=== PATIENT | female | born 2005 | race Caucasian/White ===

== ENCOUNTER 2025-01-06 10:09 | Inpatient (IN) ==
--- NOTE | 2025-01-06 10:55 | Emergency Department Note ---
Impression & Plan Bacteremia due to Gram-negative bacteria, Acute endometritis ED Provider Note NAME: MARZENA BEEBE AGE: 19 SEX: F : 2005 ARRIVES VIA: Walk-In INFORMANT: Patient, ED PROVIDER(S): Omar Manning DO CHIEF COMPLAINT: Fever HPI: The patient is a 19-year-old female who presented to the emergency department for an evaluation of fever. The patient was seen in our facility yesterday. She is 6 days. The patient denies having any chest pain or difficulty breathing. She denies having any cough. She does complain of some lower pelvic pain. She was noted to have a gram-negative bacteremia and was called to come back to our emergency department. ROS: See above HPI for pertinent positives & negatives. A total of 10 systems reviewed and were otherwise negative. PAST MEDICAL HISTORY: See Below PAST SURGICAL HISTORY: See Below FAMILY HISTORY: See Below SOCIAL HISTORY: See Below HOME MEDICATIONS: See Below ALLERGIES: See Below VITALS: See Below PHYSICAL EXAMINATION: GENERAL: Patient is awake alert in no acute distress patient is resting comfortably and showing no signs of anxiety EYES: The conjunctivae are clear. The pupils are round and reactive. EARS, NOSE, MOUTH AND THROAT: The nose is without any evidence of any deformity. NECK: The neck is nontender and supple. RESPIRATORY: Normal respiratory effort is noted there is no evidence of wheezing rhonchi or rales CARDIOVASCULAR: Tachycardic and regular heart sounds were noted to auscultation. There is no definite murmur. GASTROINTESTINAL: There was no specific guarding or rigidity noted. MUSCULOSKELETAL/EXTREMITIES: There is no evidence of gross deformity full range of motion is noted in the hips and shoulders. SKIN: There is no obvious evidence of any rash. There are no petechiae, pallor or cyanosis noted. NEUROLOGIC: Patient is awake alert and oriented x3 MEDICAL DECISION MAKING: The patient is a 19-year-old female who is who presented to the emergency department for a positive blood culture. The patient was noted to have signs of urine infection and was started on antibiotics. This was yesterday. Patient returns today because her blood cultures were growing gram- negative bacilli which [employer] identified as E. coli. The patient was tachycardic. She was not hypotensive. The patient was treated with IV fluids and IV antibiotics in emergency department. I discussed the patient's condition with the on-call [facility] FLIGHT COMMUNICATIONS OFFICER physician as well as the on-call [facility] hospitalist. The patient was evaluated in emergency department for further management and disposition. Triage Nursing notes reviewed. Prior medical records reviewed Vital Signs: reviewed and remarkable for tachycardia. Differential diagnosis: Viral syndrome, otitis, pharyngitis, pneumonia, influenza, meningitis, urinary tract infection, sepsis, bacteremia, as well as other pathologies. ER treatment provided: See below Diagnostics interpreted by me: ECG: EKG was obtained in the emergency department. My interpretation is sinus tachycardia at 115 bpm. There is no ectopy. There is no acute ST segment abnormalities noted. QTc was 417 ms. Cardiac Monitoring: An order was placed for continuous cardiac monitoring. The monitor shows a rate of 119 bpm with sinus tachycardia. Laboratory studies: As stated above and show below. Imaging studies: See below. Radiographic imaging was reviewed by myself Consultation(s): Dr. King was notified about the patient. He will evaluate the patient in the emergency department for further management and disposition. I discussed this case with Dr. Magdaleno who is on-call for [facility] FLIGHT COMMUNICATIONS OFFICER. ED COURSE: Procedures: none Critical Care: I have personally spent greater than 45 minutes of critical care time in the direct management of this patient. This includes bedside care, interpretation of diagnostic studies, and testing, discussion with consultants, patient, and family members, and other required patient management activities. This 45 minutes is in excess of all separately billable procedures. Past Med/Surg History Problem List (Updated 01/06/25 @ 11:22 by Omar Manning DO) Acute endometritis (Acute) Bacteremia due to Gram-negative bacteria (Acute) UTI (urinary tract infection) (Acute) Febrile illness, acute (Acute) care following vaginal delivery Encounter for pre-operative examination Normal labor Supervision of normal first Early stage of Encounter for anatomic survey Medical History Varicella vaccination Anxiety ADD (attention deficit disorder) Acne Surgical History No history of previous surgery Family History Denies family history of Ovarian cancer Breast cancer Colorectal cancer Social History Smoking Status: Never smoker Second Hand Exposure: Yes; Do You Dip or Chew Tobacco: No; Hx Alcohol Use: No Hx Substance Use: No Preferred Language: Yi Communication Ability: Effective Visual Impairment: No Limitations Hearing Ability: Normal Carpet Cleaner Required: No Beliefs That Will Affect Care: None marital status: Single marital status details: Mayi Puente (19) [phone] Current Living Situation: Family Current Living Situation Comment: lives alone, 2 dogs current occupational status: unemployed current occupation: [employer]-recently offered job at a [employer] Other Information That Helps Us Care for You: No Feels Safe at Home: Yes Safety Concerns: Feels Safe At This Time Dental Care, Regularly: Yes Seatbelt Use: always Assistive Devices: None Allergies Allergies Allergy/AdvReac Type Severity Reaction Status Date / Time No Known Allergies Allergy Verified 01/06/25 11:17 Home Meds Home Medications Medication Instructions Recorded Confirmed No Known Home Medications 01/06/25 01/06/25 Results & Data (ED) Vital Signs Vital Signs - 24 hr 01/06/25 10:32 01/06/25 11:17 01/06/25 11:19 Temperature 36.8 C Temperature Source Oral Pulse Rate 126 H 115 H Pulse Rate [Apical] 110 H Pulse Rate from SpO2 Sensor Pulse Rhythm Regular Pulse Rhythm [Apical] Regular Respiratory Rate 20 22 16 Respiratory Effort / Characteristics Non-Labored Spontaneous Non-Labored Spontaneous Respiratory Depth Normal Normal Blood Pressure 116/68 Blood Pressure [Left Arm] 118/70 Blood Pressure Mean 84 Blood Pressure Mean [Left Arm] 86 Pulse Oximetry 100 100 100 Oxygen Delivery Method Room Air Room Air Room Air Sepsis Recent Fever Within 48 Hours No Sepsis New/Unexplained Change in Mental Status N/A Sepsis Action Taken by Nursing No Action Required 01/06/25 11:30 01/06/25 12:29 Temperature 37.5 C Temperature Source Oral Pulse Rate 128 H Pulse Rate [Apical] 123 H Pulse Rate from SpO2 Sensor 128 H Pulse Rhythm Pulse Rhythm [Apical] Respiratory Rate 21 28 H Respiratory Effort / Characteristics Non-Labored Respiratory Depth Normal Blood Pressure 99/53 L Blood Pressure [Left Arm] 115/79 Blood Pressure Mean 64 Blood Pressure Mean [Left Arm] 91 Pulse Oximetry 100 98 Oxygen Delivery Method Room Air Sepsis Recent Fever Within 48 Hours Sepsis New/Unexplained Change in Mental Status Sepsis Action Taken by Residential Medications Current Medication List: was personally reviewed by me Laboratory Data Attestation: I reviewed the patient's lab results. 01/06/25 11:02 01/06/25 11:02 Lab Results 01/06/25 Range/Units 11:02 WBC 11.11 H (4.8-10.8) K/ul RBC 3.12 L (4.20-5.40) M/uL Hgb 8.7 L (12.0-16.0) g/dl Hct 28.3 L (37.0-47.0) % MCV 90.7 (80.0-100.0) fL MCH 27.9 (25.0-34.0) pg MCHC 30.7 L (32.0-36.0) g/dL RDW Std Deviation 44.9 (36.4-46.3) fL RDW Coeff of Neyda 13.8 (11.5-14.5) % Plt Count 165 (130-400) K/uL MPV 10.5 (9.4-12.4) fL Immature Gran % (Auto) 0.8 % Neut % (Auto) 88.4 % Lymph % (Auto) 8.6 % [place] % (Auto) 1.6 % Eos % (Auto) 0.3 % Baso % (Auto) 0.3 % Neut # (Auto) 9.83 H (1.40-6.50) K/uL Lymph # (Auto) 0.95 L (1.20-3.40) K/uL [place] # (Auto) 0.18 (0.11-0.59) K/uL Eos # (Auto) 0.03 (0.00-0.50) K/uL Baso # (Auto) 0.03 (0.00-0.20) K/uL Immature Gran # (Auto) 0.09 (0.01-0.20) K/uL Toxic Vacuolation 1+ Dohle Bodies 1+ Polychromasia 1+ Sodium 140 (136-145) mmol/L Potassium 4.0 D (3.5-5.1) mmol/L Chloride 110 H (98-107) mmol/L Carbon Dioxide 22 (21-32) mmol/L Anion Gap 8 (3-11) BUN 13 (6-23) mg/dl Creatinine 0.64 (0.6-1.2) mg/dl Est Cr Clr Drug Dosing 106.7 ml/min eGFR 130.48 BUN/Creatinine Ratio 20.3 H (10-20) Glucose 90 (70-99(Fasting)) mg/dl Lactate 1.4 (0.4-2.0) mmol/L Calcium 8.6 (8.6-10.3) mg/dl Magnesium 2.0 (1.7-2.4) mg/dl Total Bilirubin 0.7 (0.2-1.0) mg/dl Direct Bilirubin 0.1 (0-0.2) mg/dl AST 19 (13-39) U/L ALT 17 (7-52) U/L Alkaline Phosphatase 133 H (34-104) U/L Troponin I High Sens 15.6 H (0-14) pg/ml Total Protein 6.5 (6.0-8.3) gm/dl Albumin 3.5 (3.4-5.0) gm/dl Procalcitonin 41.60 H (0-0.5) ng/ml Administered Medications Discontinued Medications Piperacillin Sod/Tazobactam Sod (Zosyn) 4.5 gm in 100 mls @ 200 mls/hr IV NOW ONE; Protocol Stop: 01/06/25 11:01 Last Infusion: 01/06/25 12:59 Dose: Infused Documented By: Admin: 01/06/25 11:33 Dose: 200 mls/hr Documented By: BLANCA Sodium Chloride (Nss) 1,000 mls @ 999 mls/hr IV .Q1H1M ONE Stop: 01/06/25 11:55 Last Infusion: 01/06/25 12:59 Dose: Infused Documented By: Admin: 01/06/25 11:10 Dose: 999 mls/hr Documented By: BLANCA Sodium Chloride (Nss) 500 mls @ 999 mls/hr IV .Q31M ONE Stop: 01/06/25 11:25 Last Infusion: 01/06/25 11:38 Dose: Infused Documented By: Admin: 01/06/25 11:10 Dose: 999 mls/hr Documented By: BLANCA Acetaminophen (Ofirmev) 1,000 mg in 100 mls @ 400 mls/hr IV NOW STA Stop: 01/06/25 12:02 Last Infusion: 01/06/25 12:29 Dose: Infused Documented By: Admin: 01/06/25 11:53 Dose: 400 mls/hr Documented By: BLANCA Discharge Plan Visit Data Chief Complaint: Referred by Doctor Stated Complaint: DOC REF ED Provider: Omar Manning Discharge Problem: Bacteremia due to Gram-negative bacteria, Acute endometritis Patient Disposition: Admitted As Inpatient Condition: Fair Discharge Instructions Interventions: ED Discharge Assessment Last Done: 01/06/25 15:18
[2025-01-06] MEDS: SODIUM CHLORIDE 0.9% 500 ML IV ONE (11:10)
[2025-01-06] MEDS: SODIUM CHLORIDE 0.9% 1,000 ML IV ONE (11:10)
[2025-01-06 11:30] LABS: Hematocrit (blood only) 28.3 % (37.0-47.0); Hemoglobin 8.7 g/dl (12.0-16.0); Mean Corpuscular Hemoglobin 27.9 pg (25.0-34.0); Mean Corpuscular Volume 90.7 fL (80.0-100.0); Platelet Count 165 K/uL (130-400); RDW Standard Deviation 44.9 fL (36.4-46.3); Red Blood Count 3.12 M/uL (4.20-5.40); White Blood Count 11.11 K/ul (4.8-10.8)
[2025-01-06] MEDS: PIPERACILLIN/TAZOBACTAM 4.5 GM/100 ML BAG IV ONE (11:33)
[2025-01-06 11:51] LABS: Alanine Aminotransferase 17.0 U/L (7-52); Alkaline Phosphatase 133.0 U/L (34-104); Anion Gap 8.0 (3-11); Bilirubin,Total 0.7 mg/dl (0.2-1.0); Blood Urea Nitrogen 13.0 mg/dl (6-23); Calcium 8.6 mg/dl (8.6-10.3); Carbon Dioxide 22.0 mmol/L (21-32); Chloride 110.0 mmol/L (98-107); Creatinine Clr Calc Pharmacy 106.7 ml/min; Glucose 90.0 mg/dl (70-99(Fasting)); Magnesium 2.0 mg/dl (1.7-2.4); Potassium 4.0 mmol/L (3.5-5.1); Sodium 140.0 mmol/L (136-145); Total Protein 6.5 gm/dl (6.0-8.3)
[2025-01-06] MEDS: ACETAMINOPHEN 1,000 MG/100 ML VIAL IV STA (11:53)
[2025-01-06 12:00] LABS: Immature Granulocytes # (auto) 0.09 K/uL (0.01-0.20); Immature Granulocytes % (auto) 0.8 %; Polychromasia 1+
[2025-01-06 12:02] LABS: Dohle Bodies 1+; Toxic Vacuolation 1+
--- NOTE | 2025-01-06 13:05 | OB/GYN Consultation ---
Date of Consultation January 06, 2025 Assessment & Plan (1) Bacteremia due to Gram-negative bacteria: PHYSICAL EXAM Gastrointestinal: Abdomen is non-tender on palpation. RESULTS Labs - Blood Culture: Bacteria found ASSESSMENT AND PLAN 1. Fever, chills, and shaking: - Symptoms include fever, shakes, chills, dizziness, and headache. - Physical exam findings include no tenderness in the lower belly, no unusual vaginal discharge, and no bladder infection symptoms. - A consultation with the medical team will be arranged to further investigate the cause of her symptoms. The possibility of a uterine infection is considered due to recent childbirth on 12/31/2024, but other causes are also being evalua tracey. - Intravenous antibiotics will be administered as part of her treatment plan. Note on palpation her uterus is truly nontender she has minimal to no bleeding no foul discharge she feels as though her surgical repair is intact and has no significant issues down there on endometritis is certainly on the list of possibilities her gram-positive bacteremia may have other causes we will follow along with the medical team Of note our literature supports clindamycin 900 mg IV every 8 along with gentamicin 5 mg/kg daily for the treatment of pure endometritis patient is rec eiving Zosyn would defer to medical team if they feel continuing Zosyn is the better choice or clindamycin and gentamicin again low suspicion on endometritis as I reviewed her imaging as well and typically with endometritis there would be more content within the endometrium her lining is only 6 mm and the symptoms do not necessarily fit with this very strongly Consider causes like pyelo as well History of Present Illness History of Present Illness Visit MATT Calculator Estimated Delivery Date Method Current WG Current Estimate 01/07/25 LMP (Certain) 37w 1d Other Estimates 01/06/25 Ultrasound #1 37w 2d LMP: 04/02/24 : 1 Full term: 0 Premature: 0 Total Number of Induced Abortions: 0 Total Number of Spontaneous Abortions: 0 Ectopics: 0 Multiple births: 0 Number of Living Children: 0 and Delivery Plans hepatitis non immune HISTORY OF PRESENT ILLNESS The patient presents for evaluation of fever, chills, and shaking. She reports experiencing fever, chills, shaking, mild dizziness, and headaches. These symptoms began on Monday night, prompting her to seek medical attention on Monday. However, the cause of her symptoms was not determined at that time. She reports no pain in the uterine area or increased bleeding. She also reports no symptoms suggestive of a bladder infection or any unusual vaginal discharge. She recently gave on 12/31/2024, with a third-degree tear, but currently feels well in that area. Tylenol has been effective in managing her symptoms. Obstetrical History discussed: Gave on 12/31/2024 Third-degree tear REVIEW OF SYSTEMS Negative for pain in the uterine area, increased bleeding, symptoms suggestive of a bladder infection, or any unusual vaginal discharge. Allergies Allergy/AdvReac Type Severity Reaction Status Date / Time No Known Allergies Allergy Verified 01/06/25 11:17 Home Medications Medication Instructions Recorded Confirmed Type No Known Home Medications 01/06/25 01/06/25 History Patient History Medical History Varicella vaccination Anxiety ADD (attention deficit disorder) Acne Surgical History No history of previous surgery Family History Denies family history of Ovarian cancer Breast cancer Colorectal cancer Social History Smoking Status: Never smoker Second Hand Exposure: Yes; Do You Dip or Chew Tobacco: No; Hx Alcohol Use: No Hx Substance Use: No Preferred Language: Guinean Communication Ability: Effective Visual Impairment: No Limitations Hearing Ability: Normal Baling Machine Tender Required: No Beliefs That Will Affect Care: None marital status: Single marital status details: Mayi Puente (19) [phone] Current Living Situation: Family Current Living Situation Comment: lives alone, 2 dogs current occupational status: unemployed 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 Other Information That Helps Us Care for You: No Feels Safe at Home: Yes Safety Concerns: Feels Safe At This Time Dental Care, Regularly: Yes Seatbelt Use: always Assistive Devices: None Physical Exam Constitutional: WD/WN, vitals as above well developed and well nourished Respiratory: normal respiratory effort, lungs clear to auscultation normal respiratory effort Cardiovascular: RRR, no murmur, no edema Gastrointestinal (Abdomen): normal bowel sounds, soft, nontender, no hepatosplenomegaly Results & Data Vital Signs (Past 12 Hours) Vital Signs Temp Pulse Pulse Resp BP BP Pulse Ox 01/06/25 12:29 128 H 28 H 99/53 L 98 01/06/25 11:30 99.5 F 123 H 21 115/79 100 01/06/25 11:19 115 H 16 100 01/06/25 11:17 110 H 22 118/70 100 01/06/25 10:32 98.2 F 126 H 20 116/68 100 O2 Del Method 01/06/25 12:29 01/06/25 11:30 Room Air 01/06/25 11:19 Room Air 01/06/25 11:17 Room Air 01/06/25 10:32 Room Air PG Care Time/CCT Total # of Minutes Spent Total Time Spent with Patient: Total time spent is greater than 50% in coordination of care (as documented) at patient's floor/unit and/or counseling patient: Coding Level of Care Code 02829 IN/OBS CONSULT LVL 3,45M Diagnoses Bacteremia due to Gram-negative bacteria R78.81
--- NOTE | 2025-01-06 13:14 | History & Physical Report ---
Date of Service January 06, 2025 Assessment & Plan (1) UTI (urinary tract infection): Plan: Pyelonephritis/Sepsis in a 19 yo female with CVA tenderness on the left Patient will be admitted to PCU due to tachycardia from 120-150 Patient though appears to be slowly improving. Will obtain U/Q of kidneys. WIll consult locomotive observer emily continue current antibiotics Zosyn. Require 2.5 liters IVF bolus Plan Left pyelonephritis Left cva tenderness will continue zosyn History of Present Illness Chief Complaint: Gemeralized malaise Primary Care Provider: Ramona Galindo MD Patient is a 19 yo and 6 days . Patient had a spontaneous delvery with no complications. She did require an episiotomy.Patient reports minimal drainage and bleeding. For the past 24-48 hours, patient had been complaining of generalized malaise, fever chills. Patient however denies any SOB, nausea vomting, diarrhea, abdominal pain. She reports she is breast feeding. No breast pain. She came to the ED yesterday and was discharged on oral antibiotics however she did not pick them up. She was called back in due to her gram negative bacteremia that showed up on her blood culture. Allergies Allergy/AdvReac Type Severity Reaction Status Date / Time No Known Allergies Allergy Verified 01/06/25 11:17 Home Medications Medication Instructions Recorded Confirmed Type No Known Home Medications 01/06/25 01/06/25 History Past Med/Surg History Problem List (Updated 01/07/25 @ 08:20 by Martina Davis MD) Sepsis Pyelonephritis Acute endometritis (Acute) Bacteremia due to Gram-negative bacteria (Acute) UTI (urinary tract infection) (Acute) Febrile illness, acute (Acute) care following vaginal delivery Encounter for pre-operative examination Normal labor Supervision of normal first Early stage of Encounter for anatomic survey Medical History Varicella vaccination Anxiety ADD (attention deficit disorder) Acne Surgical History No history of previous surgery Family History Denies family history of Ovarian cancer Breast cancer Colorectal cancer Social History Smoking Status: Never smoker Second Hand Exposure: Yes; Do You Dip or Chew Tobacco: No; Hx Alcohol Use: No Hx Substance Use: No Preferred Language: Korean Communication Ability: Effective Visual Impairment: No Limitations Hearing Ability: Normal College Professor Required: No Beliefs That Will Affect Care: None marital status: Single marital status details: Mayi Puente (19) [phone] Current Living Situation: Family Current Living Situation Comment: lives alone, 2 dogs current occupational status: unemployed current occupation: [employer]-recently offered job at a [employer] Other Information That Helps Us Care for You: No Feels Safe at Home: Yes Safety Concerns: Feels Safe At This Time Dental Care, Regularly: Yes Seatbelt Use: always Assistive Devices: None Review of Systems Constitutional: + fever and + body aches Eyes: no blind spots Ear, Nose, Mouth, Throat: no ear pain Respiratory: no cough and no dyspnea Cardiovascular: no chest pain Gastrointestinal: no abdominal pain and no bloating Genitourinary: no dysuria and no urinary hesitancy Musculoskeletal: no back pain Integumentary: no acne Neurologic: no gait abnormality and no localized weakness Psychiatric: no behavioral changes Endocrine: no polydipsia Hematologic / Lymphatic: no easy bleeding Allergy / Immunological: no GI upset with certain foods and no seasonal rhinorrhea Physical Exam Constitutional: WD/WN, vitals as above Eyes: PERRL, conjunctivae normal, anicteric sclerae ENMT: external ear and nose normal, oropharynx normal Neck: trachea midline, no thyromegaly Respiratory: normal respiratory effort, lungs clear to auscultation Cardiovascular: RRR, no murmur, no edema Gastrointestinal (Abdomen): normal bowel sounds, soft, nontender, no hepatosplenomegaly Musculoskeletal: no cyanosis or clubbing, extremities motor strength 5/5 Skin: no rashes, warm and dry Neurologic: PERRL, EOMI, accommodation nl, no face palsy, no dysarthria Psychiatric: A+Ox3, euthymic affect Genitourinary: Left CVA tenderness Lymphatic: no cervical or axillary lymphadenopathy Results & Data Results & Data Vital Signs (Past 12 Hours) Vital Signs Temp Pulse Pulse Resp BP BP Pulse Ox 01/06/25 12:29 128 H 28 H 99/53 L 98 01/06/25 11:30 37.5 C 123 H 21 115/79 100 01/06/25 11:19 115 H 16 100 01/06/25 11:17 110 H 22 118/70 100 01/06/25 10:32 36.8 C 126 H 20 116/68 100 O2 Del Method 01/06/25 12:29 01/06/25 11:30 Room Air 01/06/25 11:19 Room Air 01/06/25 11:17 Room Air 01/06/25 10:32 Room Air PG Care Time/CCT Total # of Minutes Spent Total Time Spent with Patient: Total time spent is greater than 50% in coordination of care (as documented) at patient's floor/unit and/or counseling patient: Coding Level of Care Code 71658 INT INP/OBS CARE MIN Diagnoses UTI (urinary tract infection) N39.0
[2025-01-06 14:29] LABS: Appearance Urine Clear (Clear); Glucose Urine UA Negative (Negative)
[2025-01-06 14:58] LABS: Bacteria Urine Automated 1+ (None Seen); Cast Urine Automated 0-2 /lpf (0-2); WBC Urine Automated >50 /hpf (0-5)
--- NOTE | 2025-01-06 15:10 | Electrocardiogram Report ---
Test Reason : Blood Pressure : */* mmHG Vent. Rate : 115 BPM Atrial Rate : 115 BPM P-R Int : 112 ms QRS Dur : 54 ms QT Int : 302 ms P-R-T Axes : 43 48 48 degrees QTcB Int : 417 ms Sinus tachycardia Low voltage QRS Borderline ECG When compared with ECG of 05-Jan-2025 19:25, No significant change was found Confirmed by Omar Beal ([id number]) on 01/06/2025 3:09:57 PM Referred By: REFERRED SELF Confirmed By: Omar Beal
[2025-01-06 15:11] LABS: Amphetamines+Metham, Urine Neg (Neg); MDMA (Ecstacy), Urine Neg (Neg); Marijuana, Urine Neg (Neg)
[2025-01-06] MEDS: PIPERACILLIN/TAZOBACTAM 4.5 GM/100 ML BAG IV SCH (17:29)
[2025-01-06] MEDS: ACETAMINOPHEN 325 MG TAB PO PRN (18:20)
--- NOTE | 2025-01-06 18:46 | Ultrasound Report ---
Clinical history: Sepsis Technique: Renal sonography was performed Findings: The kidneys are of normal size and echogenicity. The right kidney measures 10.3 cm in length and the left kidney measures 11.6 cm in length. There is mild left hydronephrosis. No definite renal calculus or mass is seen. The urinary bladder contains apparent debris. Ureteral jets were not visualized. The spleen is mild enlarged measuring 13.7 cm Impression: 1. Mild left hydronephrosis. CT of the abdomen and pelvis could be considered for further evaluation 2. Debris within the bladder that could be due to infectious cystitis or hemorrhage 3. Mild splenomegaly ACT 112: Positive. There are findings on this exam that require communication between the performing entity and the patient following Patient Test Result Information Act ([place] ACT 112) guidelines. Electronically signed by Karlo Martinez 01-06-2025 6:44 PM
[2025-01-06] MEDS: DOCUSATE SODIUM 100 MG CAP PO SCH (20:09)
[2025-01-06 23:27] LABS: A calco-baum cmplx NotReported Not Detected (NotDetected); CTX-M Resistant Gene Not Detected (NotDetected); Efaecalis Not Reported Not Detected (NotDetected); Efaecium Not Reported Not Detected (NotDetected); IMP Resistant Gene Not Detected (NotDetected); KPC Resistant Gene Not Detected (NotDetected); Lmonocyt Not Reported Not Detected (NotDetected); NDM Resistant Gene Not Detected (NotDetected); OXA 48 Like Resistant Gene Not Detected (NotDetected); Staph lugdunensis Not Reported Not Detected (NotDetected); Staph spp. Not Reported Not Detected (NotDetected); Staphaureus Not Reported Not Detected (NotDetected); Staphepi Not Reported Not Detected (NotDetected); Strep agal(GrpB) Not Reported Not Detected (NotDetected); Strep pneum Not Reported Not Detected (NotDetected); Strep pyog (GrpA) Not Reported Not Detected (NotDetected); Strep spp Not Reported Not Detected (NotDetected); VIM Resistant Gene Not Detected (NotDetected); mcr-1 Colistin Resistant Gene Not Detected (NotDetected)
[2025-01-06 23:28] LABS: Bact fragilis Not Reported Not Detected (NotDetected); Blood Culture Id Panel See PCR Comment (NotDetected); C auris Not Reported Not Detected (NotDetected); Calbicans Not Reported Not Detected (NotDetected); Candida glabrata Not Reported Not Detected (NotDetected); Candida krusei Not Reported Not Detected (NotDetected); Cneoformans/gatti Not Reported Not Detected (NotDetected); Cparapsilosis Not Reported Not Detected (NotDetected); Ctropicalis Not Reported Not Detected (NotDetected); E cloacae compx Not Reported Not Detected (NotDetected); Enterobacterales DETECTED (NotDetected); Enterobacterales Not Reported DETECTED (NotDetected); Escherichia coli Not Reported DETECTED (NotDetected); H influenzae Not Reported Not Detected (NotDetected); K aerogenes Not Reported Not Detected (NotDetected); Koxytoca Not Reported Not Detected (NotDetected); Kpneumoniae grp Not Reported Not Detected (NotDetected); N meningitidis Not Reported Not Detected (NotDetected); P aeruginosa Not Reported Not Detected (NotDetected); Proteus spp Not Reported Not Detected (NotDetected); Salmonella spp Not Reported Not Detected (NotDetected); Stenmaltophilia Not Reported Not Detected (NotDetected)
[2025-01-07] MEDS: LACTATED RINGER'S 1,000 ML IV SCH (00:37)
[2025-01-07 07:40] LABS: Hematocrit (blood only) 22.2 % (37.0-47.0); Hemoglobin 7.1 g/dl (12.0-16.0); Mean Corpuscular Hemoglobin 28.4 pg (25.0-34.0); Mean Corpuscular Volume 88.8 fL (80.0-100.0); Platelet Count 135 K/uL (130-400); RDW Standard Deviation 44.9 fL (36.4-46.3); Red Blood Count 2.50 M/uL (4.20-5.40); White Blood Count 9.45 K/ul (4.8-10.8)
[2025-01-07 08:06] LABS: Anion Gap 7.0 (3-11); Blood Urea Nitrogen 11.0 mg/dl (6-23); Calcium 7.9 mg/dl (8.6-10.3); Carbon Dioxide 20.0 mmol/L (21-32); Chloride 111.0 mmol/L (98-107); Creatinine Clr Calc Pharmacy 120.1 ml/min; Glucose 84.0 mg/dl (70-99(Fasting)); Potassium 3.8 mmol/L (3.5-5.1); Sodium 138.0 mmol/L (136-145)
--- NOTE | 2025-01-07 08:20 | Obstetrical Progress Note ---
Date of Service <Martina Davis MD - Last Filed: 01/07/25 08:21> January 07, 2025 Assessment & Plan <Martina Davis MD - Last Filed: 01/07/25 08:21> (1) Pyelonephritis: (2) Sepsis: Plan Continue course of antibiotics including stable and routine care. Monitor <Licha Magdaleno MD, FACOG - Last Filed: 01/08/25 08:32> (1) Pyelonephritis: (2) Sepsis: Subjective <Martina Davis MD - Last Filed: 01/07/25 08:21> Ambulation: ambulating normally Voiding: voiding difficulty Passing Gas:: Yes Diet Tolerance:: regular diet Feeding Type:: breast feeding Current Pain Level(1-10): 5 Pt most likely had a UTI following that evolved into to Left Pyelonephritis with Sepsis Review of Systems All systems reviewed & are unremarkable except as noted in HPI & below i. Denies fever, chills, sweats ii. Denies SOB, difficulty breathing, chest pain, palpitations, chest pressure iii. Denies breast pain. iv. Denies Dysuria v. Denies headache or changes in vision. Physical Exam <Martina Davis MD - Last Filed: 01/07/25 08:21> Constitutional WD/WN, vitals as above Neck trachea midline, no thyromegaly Respiratory normal respiratory effort, lungs clear to auscultation Cardiovascular RRR, no murmur, no edema Gastrointestinal (Abdomen) normal bowel sounds, soft, nontender, no hepatosplenomegaly Abdomen non tender on deep and light touch. Flank pain is negative Skin no rashes, warm and dry Psychiatric A+Ox3, euthymic affect Results & Data <Martina Davis MD - Last Filed: 01/07/25 08:21> Vital Signs (Past 12 Hours) Vital Signs Temp Pulse Pulse Resp BP Pulse Ox O2 Del Method 01/07/25 02:34 37.7 C H 119 H 18 118/63 96 Room Air 01/06/25 23:18 37.6 C H 94 H 18 105/62 99 Room Air 01/06/25 21:53 93 H Supervising Physician <Licha Magdaleno MD, FACOG - Last Filed: 01/08/25 08:32> Co-Signing Physician Notes Resident Physician Supervision Note: I was present with [Name of resident] during the history and exam. I discussed the case with the resident and agree with the findings and plan as documented in the note. Any exceptions or clarifications are listed here: [None] Documented By: Licha Magdaleno MD, FACOG Resident Activity Tracking <Martina Davis MD - Last Filed: 01/07/25 08:21> Resident Involvement: Resident Care Provided Care Provided: OB Delivery
--- NOTE | 2025-01-07 11:27 | Urology Consultation ---
<Statement entered by Jose Goldberg MD - 01/07/25 17:26> Case reviewed NEW ct images reviewed no evidence of stone or obstruction unclear etiology for severe UTI and bacteremia in immediate period. Date of Consultation January 07, 2025 Assessment & Plan (1) Bacteremia due to Gram-negative bacteria: (2) UTI (urinary tract infection): 19-year-old female approximately 1 week from spontaneous vaginal delivery and repair of partial third-degree laceration who presented to the emergency department on 01/05/2025 for evaluation of fever, chills and rigors. She was febrile and tachycardic, urinalysis was suspicious for infection and she was discharged with oral cefdinir for acute UTI. Her blood cultures were showing Gram negative bacteremia and she was recalled to the ED on 01/06/2025 and admitted for IV antibiotics. Patient afebrile and hemodynamically stable Subjectively feeling better today Labs reviewedcreatinine 0.56, WBC 9.45, hemoglobin 7.1 Urinalysis suggestive of infection with positive nitrates, 1+ LE, pyuria and bacteria Blood cultures showing E. coli, urine culture pending Renal ultrasound shows mild left hydronephrosis, possible debris within the bladder Left hydronephrosis could be secondary to ascending infection, however, r ecommend additional imaging to rule out stone Recommend CT abdomen pelvis without contrast for further evaluation Continue broad-spectrum antibiotics and narrow per sensitivity data when available Further recommendations pending CTAP Continue supportive care and antibiotics per hospital medicine service History of Present Illness Reason for Consultation: Left pyelonephritis Attending Physician: Casey King History of Present Illness This is a 19-year-old female approximately 1 week from spontaneous vaginal delivery and repair of partial third-degree laceration who presented to the emergency department on 01/05/2025 for evaluation of fever, chills and rigors. She was febrile and tachycardic, urinalysis was suspicious for infection and she was discharged with oral cefdinir for UTI. Her blood cultures showed gram- negative bacteremia and she was recalled to the emergency department on 01/06/25 for IV antibiotics. On arrival, she was afebrile, tachycardic, normotensive. She was started on Zosyn and admitted to the hospital medicine service for bacteremia. Renal ultrasound 01/06 showed mild left hydronephrosis. Labs today reviewedcreatinine 0.56, WBC 9.45, hemoglobin 7.1 Urinalysis 01/06/2025 with 3+ blood, positive nitrates, 1+ LE, >50 WBC, 3-5 RBC, 1+ bacteria Blood cultures 01/05 and 01/06 prelim with E. coli Urine culture 01/06 pending Patient seen and examined at bedside. Mother present. Patient reports feeling better today. No dysuria or hematuria. No fever or chills at present. No nausea or vomiting. Mild left flank pain, improved. No personal history of kidney stones. Her mother had 1 kidney stone in the past. Allergies Allergy/AdvReac Type Severity Reaction Status Date / Time No Known Allergies Allergy Verified 01/06/25 11:17 Home Medications Medication Instructions Recorded Confirmed Type No Known Home Medications 01/06/25 01/06/25 History Patient History Medical History Varicella vaccination Anxiety ADD (attention deficit disorder) Acne Surgical History No history of previous surgery Family History Denies family history of Ovarian cancer Breast cancer Colorectal cancer Social History Smoking Status: Never smoker Second Hand Exposure: Yes; Do You Dip or Chew Tobacco: No; Hx Alcohol Use: No Hx Substance Use: No Preferred Language: Scottish Communication Ability: Effective Visual Impairment: No Limitations Hearing Ability: Normal Wire Frame Dipper Required: No Beliefs That Will Affect Care: None marital status: Single marital status details: Mayi Puente (19) [phone] Current Living Situation: Family Current Living Situation Comment: lives alone, 2 dogs current occupational status: unemployed 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 Other Information That Helps Us Care for You: No Feels Safe at Home: Yes Safety Concerns: Feels Safe At This Time Dental Care, Regularly: Yes Seatbelt Use: always Assistive Devices: None Review of Systems Constitutional: as per Subjective / HPI Genitourinary: as per Subjective / HPI Physical Exam Constitutional: well developed and well nourished; no acute distress Respiratory: normal respiratory effort; no respiratory distress and no labored breathing Gastrointestinal (Abdomen): Inspection/Auscultation: abdomen normal to inspection Musculoskeletal: Head/Neck/Chest: normocephalic Neurologic: moves all extremities and awake Psychiatric: Orientation: alert and oriented x 3 Results & Data Vital Signs (Past 12 Hours) Vital Signs Temp Pulse Pulse Resp BP Pulse Ox O2 Del Method 01/07/25 08:00 37.1 C 01/07/25 08:00 83 01/07/25 07:18 37.6 C H 89 19 119/78 97 Room Air 01/07/25 02:34 37.7 C H 119 H 18 118/63 96 Room Air 01/06/25 23:18 37.6 C H 94 H 18 105/62 99 Room Air PG Care Time/CCT Total # of Minutes Spent Total Time Spent with Patient: Total time spent is greater than 50% in coordination of care (as documented) at patient's floor/unit and/or counseling patient: Coding Level of Care Code 70350 IN/OBS CONSULT LVL 4,60M Diagnoses Bacteremia due to Gram-negative bacteria R78.81 UTI (urinary tract infection) N39.0
--- NOTE | 2025-01-07 12:42 | CT Scan Report ---
CT OF THE ABDOMEN AND PELVIS WITHOUT CONTRAST CLINICAL HISTORY: Left hydronephrosis, bacteremia, rule out stone. Vaginal delivery December 31, 2024 . COMPARISON STUDY: Renal ultrasound January 06, 2025. Pelvic ultrasound January 05, 2025. TECHNIQUE: Axial images of the abdomen and pelvis were obtained without IV contrast. Images were revi ewed in the axial, sagittal, and coronal planes. Automated exposure control was utilized for the laura dy. A dose lowering technique was utilized adhering to the principles of ALARA. FINDINGS: Visualized portions of the lower chest demonstrate interlobular septal thickening with trac e bilateral pleural effusions. No pneumatosis, free air or portal venous gas is present. Evaluation o f the abdomen and pelvis is suboptimal on unenhanced exam. Unenhanced images of the liver, spleen, ad renal glands, kidneys and pancreas are unremarkable. There is no hydronephrosis. There are no urinary calculi. No renal fluid collection is identified on unenhanced exam. Sensitivity for detection of py elonephritis is diminished on unenhanced CT. There is possible urothelial thickening of the left alia ecting system and left ureter. There is no evidence for a bowel obstruction. The appendix is normal. There is trace ascites within the right paracolic gutter. A small amount of fluid within pelvis is pr esent. There is moderate gallbladder wall thickening. As expected, the uterus is enlarged. There are no fluid collections. IMPRESSION: 1. No urinary calculi or hydronephrosis. 2. Possible urothelial thickening of the left collecting system and the left ureter, suboptimally ass essed on unenhanced exam. This may represent left pyelitis and left pyelonephritis cannot be excluded on this unenhanced study. 3. Evidence for interstitial pulmonary edema with trace bilateral pleural effusions. Small amount of ascites within the abdomen and pelvis. 4. Gallbladder wall thickening. This is nonspecific but likely related to volume overload. Acute chol ecystitis is considered less likely. If right upper quadrant pain, ultrasound is recommended. 5. Enlarged uterus, as expected. ACT 112: Negative or not required by law. Electronically signed by: Tylor Cameron M.D. 01/07/2025 12:41 PM
[2025-01-07 15:24] LABS: Hematocrit (blood only) 23.6 % (37.0-47.0); Hemoglobin 7.7 g/dl (12.0-16.0)
--- NOTE | 2025-01-07 17:42 | Hospitalist Progress Note ---
Date of Service January 07, 2025 Assessment & Plan (1) UTI (urinary tract infection): Plan: Left Pyelonephritis/Sepsis in a 19 yo female with CVA tenderness on the left Patient admitted to PCU due to tachycardia from 120-150 Now Heart rate mainly in the 90s, will downgrade to Med surg U/S confirmed diagnosis, no abscess, however due to hydronephrosis, Urology and ct scan ordered. No stones noted. will continue zosyn, anticipate to tailor antibiotics once sensitivites come back Cultures showing E. coli consult tobacco acreage measurer as patient is post emily continue current antibiotics Zosyn. continue IVF Admission and Anticipated Discharge Date Admission Date: January 06, 2025 Subjective Patient reports feeling very distraught and sad that she is still having a fever and is not being discharged, Her mother is at bedside and reassures the patient, she also is updated. Tele monitor shows imprved Heart rate, Physical Exam Constitutional: WD/WN, vitals as above Eyes: PERRL, conjunctivae normal, anicteric sclerae ENMT: external ear and nose normal, oropharynx normal Neck: trachea midline, no thyromegaly Respiratory: normal respiratory effort, lungs clear to auscultation Cardiovascular: RRR, no murmur, no edema Gastrointestinal (Abdomen): normal bowel sounds, soft, nontender, no hepatosplenomegaly Musculoskeletal: no cyanosis or clubbing, extremities motor strength 5/5 (no longer having left sided CVA tenderness) Skin: no rashes, warm and dry Neurologic: PERRL, EOMI, accommodation nl, no face palsy, no dysarthria Psychiatric: A+Ox3, euthymic affect Lymphatic: no cervical or axillary lymphadenopathy Results & Data Results & Data Vital Signs (Past 12 Hours) Vital Signs Temp Pulse Pulse Resp BP Pulse Ox Pulse Ox 01/07/25 16:51 38.0 C H 80 18 118/82 99 01/07/25 16:00 97 01/07/25 15:11 87 01/07/25 10:49 36.9 C 75 16 121/78 97 01/07/25 08:00 37.1 C 01/07/25 08:00 83 01/07/25 07:18 37.6 C H 89 19 119/78 97 O2 Del Method O2 Del Method 01/07/25 16:51 Room Air 01/07/25 16:00 Room Air 01/07/25 15:11 01/07/25 10:49 Room Air 01/07/25 08:00 01/07/25 08:00 01/07/25 07:18 Room Air PG Care Time/CCT Total # of Minutes Spent Total Time Spent with Patient: Total time spent is greater than 50% in coordination of care (as documented) at patient's floor/unit and/or counseling patient: Coding Level of Care Code 22323 SUB INP/OBS CARE 3/50MIN Diagnoses UTI (urinary tract infection) N39.0
[2025-01-07] MEDS: SODIUM CHLORIDE 0.9% 1,000 ML IV SCH (17:48)
[2025-01-08 06:27] LABS: Hematocrit (blood only) 22.9 % (37.0-47.0); Hemoglobin 7.4 g/dl (12.0-16.0); Immature Granulocytes # (auto) 0.06 K/uL (0.01-0.20); Immature Granulocytes % (auto) 0.7 %; Mean Corpuscular Hemoglobin 28.6 pg (25.0-34.0); Mean Corpuscular Volume 88.4 fL (80.0-100.0); Platelet Count 166 K/uL (130-400); RDW Standard Deviation 42.8 fL (36.4-46.3); Red Blood Count 2.59 M/uL (4.20-5.40); White Blood Count 9.15 K/ul (4.8-10.8)
[2025-01-08 06:41] LABS: Anion Gap 6.0 (3-11); Blood Urea Nitrogen 7.0 mg/dl (6-23); Calcium 7.8 mg/dl (8.6-10.3); Carbon Dioxide 21.0 mmol/L (21-32); Chloride 113.0 mmol/L (98-107); Creatinine Clr Calc Pharmacy 113.1 ml/min; Glucose 95.0 mg/dl (70-99(Fasting)); Potassium 3.4 mmol/L (3.5-5.1); Sodium 140.0 mmol/L (136-145)
[2025-01-08 06:50] LABS: Polychromasia 1+
[2025-01-08 07:15] LABS: Dohle Bodies 1+
--- NOTE | 2025-01-08 07:46 | Hospitalist Progress Note ---
Date of Service January 08, 2025 Assessment & Plan (1) Pyelonephritis: (2) E coli bacteremia: Plan 19 y/o who is one week admitted with sepsis due to acute pyelonephritis and E. coli bacteremia Duarte sensitive E. coli in urine and blood - changed pip-tazo to ceftriaxone, complete total 14 day course abx Left sided hydronephrosis on renal US and CT related to pyelonephritis/inflammation, no stones visualized. Urology consulted and signed off. Expect resolution once infection resolved Symptoms much improved fever curve improved, still with fever 38.1 early AM Home once afebrile at/near 24h on po abx Anemia - Hg 7.1--7.7--7.4. Was 10.7 on 12/30. There is some dilutional effect here. We do not see any active bleeding. Check iron studies. / -OB is consulting I updated her mom in room Admission and Anticipated Discharge Date Admission Date: January 06, 2025 Subjective Fever 38.1 at 0400 Since then afebrile without tylenol. L flank pain resolved and feels a lot better overall. Physical Exam Physical Exam: Last 24h vitals reviewed GEN: no acute distress, sitting in bed feeding HEENT: pupils equal, sclerae anicteric, moist MM RESP: normal WOB, CTAB CV: reg no mrg ABD: soft/nt/nd +BT. No L CVA tenderness : no handy SKIN: warm and dry, no generalized rashes NEURO: AOx person, place, and situation. Face symmetric, speech normal, moves 4 ext spontaneously and equally Results & Data Results & Data Vital Signs (Past 12 Hours) Vital Signs Temp Pulse Pulse Resp BP Pulse Ox O2 Del Method 01/08/25 07:25 36.9 C 68 16 116/79 98 Room Air 01/08/25 04:09 38.1 C H 01/08/25 02:45 38 C H 77 16 122/74 96 Room Air 01/07/25 22:52 37.2 C 75 17 125/85 97 Room Air 01/07/25 21:58 66 Laboratory Results CRP 9-->13 K 3.4 W 9 Cr 0.6 Urine, blood cultures - duarte-sensitive E. coli PG Care Time/CCT Total # of Minutes Spent Total Time Spent with Patient: Total time spent is greater than 50% in coordination of care (as documented) at patient's floor/unit and/or counseling patient: Coding Level of Care Code 60966 SUB INP/OBS CARE MIN Diagnoses Pyelonephritis N12 E coli bacteremia R78.81; B96.20
--- NOTE | 2025-01-08 08:54 | Obstetrical Progress Note ---
Date of Service January 08, 2025 Assessment & Plan (1) Pyelonephritis: (2) Sepsis: Plan treatment per primary service, temp curve noted. still no evidence of uterine tenderness, pp doing well from ob pp standpoint. says baby has visited and she has all her pump supplies. empathy expressed. we will follow along. Admission and Anticipated Discharge Date Admission Date: January 06, 2025 Subjective pt sitting up in her bed. smiling. feels well. she denies pain. no issues with pp bleeding. she is pumping, baby is one wk old. notes still had fever overnight and so likely still will be here Review of Systems Constitutional: as per Subjective / HPI Physical Exam Constitutional: WD/WN, vitals as above Gastrointestinal (Abdomen): Percussion/Palpation: abdomen soft (ff 3 down, fundus non tender. ); abdomen nontender and no guarding Neurologic: grossly normal Psychiatric: A+Ox3, euthymic affect Results & Data Vital Signs (Past 12 Hours) Vital Signs Temp Pulse Pulse Resp BP Pulse Ox O2 Del Method 01/08/25 07:25 98.4 F 68 16 116/79 98 Room Air 01/08/25 04:09 100.5 F H 01/08/25 02:45 100.4 F H 77 16 122/74 96 Room Air 01/07/25 22:52 99.0 F 75 17 125/85 97 Room Air 01/07/25 21:58 66 PG Care Time/CCT Total # of Minutes Spent Total Time Spent with Patient: Total time spent is greater than 50% in coordination of care (as documented) at patient's floor/unit and/or counseling patient: Coding Level of Care Code 19374 OP VST EST LOW 20 MIN Diagnoses Pyelonephritis N12 Sepsis A41.9 Comment given she is an inpt and we are consulting, i am sure this is not the right code.
[2025-01-08] MEDS: cefTRIAXone SODIUM 2,000 MG/50 ML BAG IV SCH (09:00)
[2025-01-08] MEDS: POTASSIUM CHLORIDE CRTAB 20 MEQ TABCR PO STA (09:00)
[2025-01-08] MEDS: ADVANCED PROBIOTIC 625 MG CAPSULE PO SCH (09:38)
--- NOTE | 2025-01-08 11:15 | Urology Progress Note ---
<Statement entered by Jose Goldberg MD - 01/08/25 15:55> Chart reviewed plan discussed and agree with assessment as written Date of Service January 08, 2025 Assessment & Plan (1) Bacteremia due to Gram-negative bacteria: Plan 19-year-old female approximately 1 week from spontaneous vaginal delivery and repair of partial third-degree laceration who presented to the emergency department on 01/05/2025 for evaluation of fever, chills and rigors. She was febrile and tachycardic, urinalysis was suspicious for infection and she was discharged with oral cefdinir for acute UTI. Her blood cultures were showing Gram negative bacteremia and she was recalled to the ED on 01/06/2025 and admitted for IV antibiotics. Subjectively feeling well today. Afebrile this morning (Tmax 38.1C overnight 01/08). Hemodynamically stable. Labs reviewedcreatinine 0.59, WBC 9.15, hemoglobin 7.4 Urine culture 01/05 and 01/06 grew E.coli. Blood cultures 01/05 prelim pansensitive E.coli; Repeat blood cultures 01/06 prelim E.coli. Antibiotics changed from pip-tazo to ceftriaxone on 01/08. CTAP with no evidence of stone or obstruction. Continue supportive care and antibiotics per hospital medicine service. Will arrange outpatient follow-up with our service. Urology will follow peripherally, please contact us with any questions/concerns or changes in patient status. Admission and Anticipated Discharge Date Admission Date: January 06, 2025 Subjective Pt seen at bedside this morning. Awake and resting in bed on arrival. No acute distress. Mother present. Was febrile overnight. No fevers this morning. Reports she is feeling well. Denies flank or back pain. Voiding without issue. Review of Systems Constitutional: as per Subjective / HPI Genitourinary: as per Subjective / HPI Physical Exam Constitutional: no acute distress Respiratory: no respiratory distress and no labored breathing Neurologic: moves all extremities and awake Psychiatric: Orientation: alert and oriented x 3 Results & Data Vital Signs (Past 12 Hours) Vital Signs Temp Pulse Pulse Resp BP Pulse Ox O2 Del Method 01/08/25 07:25 36.9 C 68 16 116/79 98 Room Air 01/08/25 04:09 38.1 C H 01/08/25 02:45 38 C H 77 16 122/74 96 Room Air 01/07/25 22:52 37.2 C 75 17 125/85 97 Room Air 01/07/25 21:58 66 PG Care Time/CCT Total # of Minutes Spent Total Time Spent with Patient: Total time spent is greater than 50% in coordination of care (as documented) at patient's floor/unit and/or counseling patient: Coding Level of Care Code 43026 SUB INP/OBS CARE 2/35MIN Diagnoses Bacteremia due to Gram-negative bacteria R78.81
[2025-01-08 20:19] VITALS: O2SAT 98
--- NOTE | 2025-01-09 07:57 | Obstetrical Progress Note ---
Date of Service January 09, 2025 Assessment & Plan (1) E coli bacteremia: Secondary to UTI, responding well to antibiotic, can likely be managed with outpatient oral therapy as she is afebrile >24hr and feeling well. (2) UTI (urinary tract infection): Subjective Patient feeling much better, ready to go home today. Physical Exam Sitting up in bed eating regular breakfast tray, smiling, talkative. Support person at bedside. NAD Good skin color/tone No resp distress Abd soft / postgravid Ankles w/o edema, Dexter neg Results & Data Vital Signs (Past 12 Hours) Vital Signs Temp Pulse Pulse Resp BP Pulse Ox O2 Del Method 01/09/25 03:11 98.6 F 92 H 17 116/74 98 Room Air 01/09/25 00:00 82 01/08/25 23:48 90 16 118/76 98 Room Air 01/08/25 23:43 98.8 F Laboratory Results Vital Signs Temp Pulse Pulse Resp BP Pulse Ox O2 Del Method 01/09/25 03:11 98.6 F 92 H 17 116/74 98 Room Air 01/09/25 00:00 82 01/08/25 23:48 90 16 118/76 98 Room Air 01/08/25 23:43 98.8 F 01/08/25 19:04 99.3 F 79 17 125/77 98 Room Air 01/08/25 15:48 98.8 F 73 16 117/78 97 Room Air 01/08/25 13:38 99 H 01/08/25 11:29 98.4 F 65 16 134/84 98 Room Air 01/08/25 08:00 75 Intake and Output 01/08/25 01/09/25 01/09/25 22:59 06:59 14:59 Intake Total 1347.333 / 1497.333 921.333 / 2418.666 Balance 1347.333 / 1497.333 921.333 / 2418.666 Intake: IV 997.333 / 1147.333 921.333 / 2068.666 Sodium Chloride 0.9% 1,000 ml @ 997.333 / 997.333 921.333 / 1918.666 80 mls/hr IV .[id number] SHIRA Rx#: [id number] Oral 350 / 350 Other: # Unmeasured Voids 1 2 Weight 103 lb 13.404 oz
[2025-01-09 08:09] VITALS: BP 114/76; RESP 16; TEMP 99
--- NOTE | 2025-01-09 11:31 | Discharge Summary ---
Discharge Summary Date of Service January 09, 2025 Principal Dx & Hospital Course #1 = Principal Diagnosis (1) Pyelonephritis: Pansensitive E. coli isolated. (2) E coli bacteremia: Treated while hospitalized with intravenous Rocephin, day 4. She will be discharged on oral cephalexin for 10 more days to complete a 2-week course. Plan Home today, January 09. Continue oral cephalexin for 10 more days to complete a 2-week antibiotic course. Follow-up with timber spotter as scheduled. Admission HPI Per Admitting Provider Patient is a 19 yo and 6 days . Patient had a spontaneous delvery with no complications. She did require an episiotomy.Patient reports minimal drainage and bleeding. For the past 24-48 hours, patient had been complaining of generalized malaise, fever chills. Patient however denies any SOB, nausea vomting, diarrhea, abdominal pain. She reports she is breast feeding. No breast pain. She came to the ED yesterday and was discharged on oral antibiotics however she did not pick them up. She was called back in due to her gram negative bacteremia that showed up on her blood culture. Discharge Exam General-alert and oriented x3, no fever, no chills HEENT-head atraumatic and normocephalic, pupils equal and reactive to light, extraocular muscles intact Neck-no lymphadenopathy or thyromegaly, trachea midline Chest-clear to auscultation. No rales, wheezing or rhonchi Cardiac-regular rate and rhythm, normal S1 and S2 Abdomen-normal bowel sounds, no hepatosplenomegaly Extremities-no cyanosis, clubbing, or edema Neuro-cranial nerves II through XII intact, motor and sensory function within normal limits, strength symmetrical, no focal deficits Psych-normal affect, normal mood Discharge Plan Discharge Items Patient Disposition: Home - Self-Care Reason For Visit: SEPSIS Discharge Diagnosis: E. coli bacteremia, E. coli pyelonephritis, sepsis Condition on Discharge: Good Activity: Resume your previous activity Non-emergency contact: Primary Care Provider and Radiology Physician Call non-emergency contact if: your symptoms worsen Follow-up/Referrals: Ramona Galindo MD [Primary Care Provider] - Diet: Regular Addtl Attending Provider Instructions: Take cephalexin 500 mg 4 times daily for 10 days. A prescription has been sent to [facility] pharmacy in [place]. Follow-up with timber spotter as scheduled Pending Studies at Discharge: No Stand-Alone Forms: My [facility], Smoking Cessation Medications and DC Order Prescriptions: New cephalexin 500 mg capsule 500 mg PO QID 10 Days Qty: 40 0RF Discharge Orders: Discharge Order (Routine); Ordered 01/09/25 Ordered By: Raghav Boston Admission Data Admit Date/Time: 01/06/25 13:10 Attending Provider: Raghav Boston Admit Provider: Casey King Primary Care Provider: Ramona Galindo Other Providers: Casey King; Licha Magdaleno; Dave Ryan; Teresa Saha; Chago Gruber; Milagros Antonio; Daron Bernstein; Felicia Moraes; Ayden Peralta; Meaghan Patterson; Jose Goldberg; Heath Oro Hospital Stay Data Consultations 01/06/25 11:20 ED Decision to Admit Stat 01/06/25 13:14 Consult Obstetrics Routine 01/07/25 17:10 Consult Urology Routine Diagnostic Imagining Performed 01/06/25 13:52 US Renal Bladder [US renal/blad retro comp] Stat 01/07/25 11:09 CT Abd and Pelvis [CT abd pelvis wo con] Urgent Pending Results Patient Have Any Pending Studies at Discharge: No Discharge Instructions Given to Patient (Per Discharging Provider) Take cephalexin 500 mg 4 times daily for 10 days. A prescription has been sent to [facility] pharmacy in [place]. Follow-up with timber spotter as scheduled Total Time Total Time Spent Total Time Spent (In Minutes): 45 minutes Coding Level of Care Code 77834 INP/OBS DISCH >30 MIN Diagnoses Pyelonephritis N12 E coli bacteremia R78.81; B96.20
[2025-01-09 11:52] VITALS: PULSE 78
== END 2025-01-09 12:33 | disposition home or self-care (01) | DRG 776 ==
LOC: ED 10:09 → SUATTDRO 13:10 → 2E 13:10